=== PATIENT | male | born 1990 | race Caucasian/White ===

== ENCOUNTER 2016-11-08 12:52 | Emergency (ER) | payer BC ==
[~2016-11-08] VITALS: Ht 177.8 cm; Wt 67.0 kg
[~2016-11-08 12:52] MED LIST: DOXY100C76 PO
[2016-11-08 12:57] VITALS: TEMP 37; Ht 177.8 cm; Wt 67.0 kg
[2016-11-08 15:02] VITALS: BP 132/70; PULSE 78; O2SAT 97
--- NOTE | 2016-11-10 17:19 | EMERGENCY ROOM VISIT NOTE ---
ED Visit Note First contact with patient: 13:39 Chief Complaint: I have a floater in my left eye. History of Present Illness: Mr. Egan is a 26-year-old white male who ambulates into the ED accompanied by female friend complaining of a floater in his left eye. Patient reports approximately one hour before he arrived in the emergency department he noticed a floater in his left eye. He does report he was exercising earlier today but not more strenuously than his normal exercise which included a run. It occurred while he was at rest. He has been constant since it occurred. He describes it as a single line appearance. It does follow his vision tracking. He has not taken any medications for these symptoms. He has not identified any aggravating or alleviating factors related these symptoms. He denies any associated headaches, dizziness, lightheadedness , recent eye trauma, previous eye injuries/diseases, visual changes, light sensitivity, flashing light or drawing curtains in his visual arciniega. Review of Systems: As noted above in history of present illness. Past Medical History: Bicuspid aortic valve. Current Medications: Patient denies. Allergies to Medications: Patient denies. Social History: Patient is currently employed; he feels safe in his home environment; he denies tobacco use and admits to alcohol use. Physical Examination: Vital Signs: Date Time Temp Pulse Resp B/P Pulse Ox O2 Delivery O2 Flow Rate FiO2 11/08/16 15:02 78 16 132/70 97 11/08/16 12:57 37.0 75 16 135/81 99 GENERAL: 26-year-old male in no acute distress, nontoxic-appearing, afebrile and hemodynamically stable. NEUROLOGICAL: Awake, alert and oriented to person, place and time. Answering questions appropriately and following commands. SKIN: Warm, dry and pink. No soft tissue eruptions or trauma noted. EYES: PERRLA. EOMI without nystagmus. No light sensitivity. No foreign bodies noted under the eyelids are embedded in the cornea. Anterior chamber is clear. Sclera white and conjunctiva pink without drainage. Funduscopic examination shows no signs of retinal disease or trauma. ED Course: Patient is assessed as noted above. Patient's case was consulted with Dr. Ocampo, recessing machine operator; he did not feel that this was a retinal injury at this time. He felt that that there was multiple floaters or flashing lights his symptoms would be much more concerning. He recommended 2 days of rest and if the floater had not resolved follow-up at his office. Patient was educated about tonight's findings and instructed on his treatment plan; he verbalizes understanding and agreement with this plan. Clinical Impression: Picture is floater of the left eye. Disposition: Patient discharged home in stable condition; prior to departure he was reassessed and subjectively reported he was feeling the same. Plan: Patient was encouraged to decrease physical activity until resolution of my floater. Patient was encouraged to follow-up with Dr. Ocampo, recessing machine operator; if the eye floater had not resolved by Thursday. Patient was encouraged return the ED for multiple floaters, flashing light, worsening vision changes or any new/concerning symptoms.
== END 2016-11-08 15:06 | disposition home or self-care (01) ==
LOC: C.EDB 12:54 → C.EDD 15:06
DX: H43.392 Other vitreous opacities, left eye (principal)